=== PATIENT | male | born 2000 | race Caucasian/White ===

== ENCOUNTER 2021-08-03 06:45 | Emergency (ER) | payer OTHER ==
[~2021-08-03] VITALS: Ht 175.3 cm; Wt 63.6 kg
[2021-08-03 06:52] VITALS: TEMP 99
[2021-08-03 07:26] LABS: HEMOGLOBIN 13.6 g/dl (13.5-18.0); MEAN CELL VOLUME 80 fl (80.0-100.0); MEAN CORPUSCULAR HEMOGLOBIN 27 pg (27-31); MEAN CORPUSCULAR HGB CONC 33 g/dl (33.0-37.0); MEAN PLATELET VOLUME 12.5 fl (7.4-10.4); PLATELET COUNT 120 K/mm3 (130-400); RED BLOOD COUNT 5.11 M/mm3 (4.20-5.60); REDCELL DISTRIBUTION WIDTH-CV 12.9 % (11.5-14.5)
[2021-08-03 07:50] LABS: ALBUMIN 3.9 gm/dL (3.5-5.0); CALCIUM 8.6 mg/dL (8.4-10.2); CREATININE, serum 1.07 mg/dL (0.72-1.25); POTASSIUM 4.5 mmol/L (3.5-4.5); TOTAL PROTEIN 7.1 gm/dL (6.2-8.1)
[2021-08-03 07:53] LABS: MONOSCREEN POSITIVE
[2021-08-03 08:17] LABS: BAND 9 % (0-10); NEUTROPHILS 22 % (42.0-75.2)
[2021-08-03 08:18] LABS: PLATELET ESTIMATE DECREASED (NORMAL)
[2021-08-03 08:21] LABS: LYMPHOCYTE 67 % (20.0-51.0)
[2021-08-03] MEDS ORDERED: CLEOCIN HCL300 MG PO (09:55)
[2021-08-03 10:05] VITALS: BP 152/90; PULSE 51
== END 2021-08-03 10:15 | disposition home or self-care (01) ==
LOC: COL.ER 06:45
PROVIDERS: Personal Emergency Response Attendant
DX: B27.90 Infectious mononucleosis, unspecified without complication (principal); I88.9 Nonspecific lymphadenitis, unspecified; J02.9 Acute pharyngitis, unspecified
CPT/HCPCS: J0696; J1100; J7030; Q9967